=== PATIENT | female | born 1955 | race Caucasian/White ===

== ENCOUNTER 2017-01-09 08:28 | Emergency (ER) | payer OTHER, BC ==
[~2017-01-09] VITALS: Ht 165.1 cm; Wt 77.0 kg
[~2017-01-09 08:28] MED LIST: ACIP20TA19; ATOR20TA42 PO; LORA-392 PO; METO25 PO; TEMA7.5C9 PO; ZIPR20 PO
[2017-01-09 08:34] VITALS: BP 109/60; PULSE 68; RESP 20; TEMP 98.3; O2SAT 96
[2017-01-09] MEDS ORDERED: ONDANSETRON HCL 4 MG/2 ML VIAL IVP ONE (09:00)
[2017-01-09] MEDS ORDERED: MORPHINE SULFATE 4 MG/ML INJ IV PUSH ONE (09:00)
[2017-01-09] MEDS ORDERED: SODIUM CHLORIDE 0.9% FLUSH 10 ML FLUSH IVF PRN (09:00)
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
[2017-01-09] MEDS ORDERED: LAMO150 PO (09:05)
[2017-01-09] MEDS ORDERED: HYDR-3583 PO (09:05)
[2017-01-09] MEDS ORDERED: PROP20TA3 PO (09:05)
[2017-01-09] MEDS ORDERED: MODA200T12 PO (09:05)
[2017-01-09] MEDS ORDERED: LITH300C2 PO (09:05)
[2017-01-09] MEDS ORDERED: ATOR20TA15 PO (09:05)
[2017-01-09] MEDS ORDERED: TRAZ100T6 PO (09:05)
[2017-01-09] MEDS ORDERED: GEOD80CA PO (09:05)
[2017-01-09] MEDS ORDERED: LEVO.05 PO (09:05)
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
[2017-01-09] MEDS ORDERED: MORPHINE SULFATE 8 MG/ML INJ IV PUSH ONE (09:45)
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
[2017-01-09 10:29] LABS: AUTOMATED NEUTROPHIL # 9.2 TH/MM3 (1.8-7.7); BASOPHIL % 0.4 % (0.0-2.0); EOSINOPHIL # 0.2 TH/MM3 (0-0.4); EOSINOPHIL % 1.9 % (0.0-4.0); HEMATOCRIT 39.1 % (35.0-46.0); HEMO FLAGS DIFF FINAL; LYMPH % 11.1 % (9.0-44.0); LYMPHOCYTE # 1.3 TH/MM3 (1.0-4.8); MEAN CELL VOLUME 93.4 FL (80.0-100.0); MEAN CORPUSCULAR HEMOGLOBIN 30.6 PG (27.0-34.0); MEAN CORPUSCULAR HGB CONC 32.7 % (32.0-36.0); MONO % 6.5 % (0.0-8.0); NEUT % 80.1 % (16.0-70.0); PLATELET COUNT 179 TH/MM3 (150-450); RED BLOOD COUNT 4.18 MIL/MM3 (4.00-5.30); RED CELL DISTRIBUTION WIDTH 12.4 % (11.6-17.2); WHITE BLOOD COUNT 11.5 TH/MM3 (4.0-11.0)
[2017-01-09 10:50] LABS: ALT (GPT) 17 U/L (10-53)
[2017-01-09 10:52] LABS: ALKALINE PHOSPHATASE 60 U/L (45-117); TOTAL BILIRUBIN ADULT 0.3 MG/DL (0.2-1.0)
[2017-01-09 10:59] LABS: ANION GAP 6 MEQ/L (5-15); AST (GOT) 20 U/L (15-37); BICARBONATE 23.9 MEQ/L (21.0-32.0); BLOOD UREA NITROGEN 14 MG/DL (7-18); CHLORIDE 108 MEQ/L (98-107); GLOMERULAR FILTRATION RATE 91 ML/MIN (>89); SODIUM (NA) 138 MEQ/L (136-145)
[2017-01-09] MEDS ORDERED: TRAM50TA PO (11:36)
[2017-01-09 11:59] VITALS: BP 145/85; PULSE 65; RESP 20; O2SAT 94
== END 2017-01-09 12:05 | disposition home or self-care (01) ==
LOC: NEPC 08:28
DX: S20.219A Contusion of unspecified front wall of thorax, initial encounter (principal); S30.0XXA Contusion of lower back and pelvis, initial encounter; F32.9 Major depressive disorder, single episode, unspecified; E11.9 Type 2 diabetes mellitus without complications; K21.9 Gastro-esophageal reflux disease without esophagitis; I10 Essential (primary) hypertension; M13.80 Other specified arthritis, unspecified site; V43.52XA Car driver injured in collision with other type car in traffic accident, initial encounter; Z79.899 Other long term (current) drug therapy
CPT/HCPCS: 70450; 71010; 72125; 72170; 80053; 80178; 80307; 85025; 96374; 96375; 99285; J2270; J2405